=== PATIENT | male | born 1955 | race Caucasian/White ===

== ENCOUNTER 2017-06-26 22:46 | Emergency (ER) | payer BC ==
[~2017-06-26] VITALS: Ht 182.8 cm; Wt 113.4 kg
[2017-06-27] MEDS ORDERED: VICODIN 5-3001 EACH PO (00:50)
== END 2017-06-27 00:54 | disposition home or self-care (01) ==
LOC: ED 22:46
DX: M48.00 Spinal stenosis, site unspecified (principal); M54.30 Sciatica, unspecified side; Z88.0 Allergy status to penicillin

== ENCOUNTER → 2018-10-20 | Day surgery (SDC) | payer BC ==
[~2018-10-20] VITALS: Ht 175.2 cm; Wt 90.7 kg
[~2018-10-20] MED LIST: CRESTOR10 M1 PO; LISINOPRIL-HCT1 EACH PO; VICODIN 5-3001 EACH PO; ZYLOPRIM300 MG PO
--- NOTE | ~2018-10-20 | O ---
[place], [place] OPERATIVE NOTE NAME: EVA ACUÑA [facility] #: [id number] UNIT #: [id number] ROOM: DOCTOR: MAYTE LAN MD BIRTHDATE: [birth year] DOS: 10/20/2018 PREOPERATIVE DIAGNOSIS: Cataract, right eye. POSTOPERATIVE DIAGNOSIS: Cataract, right eye. OPERATION: Extracapsular cataract extraction by phacoemulsification with posterior chamber intraocular lens implantation, right eye. ANESTHESIA: Monitored standby. OPERATIVE FINDINGS AND PROCEDURE: 2% Xylocaine topical anesthetic gel was applied to the eye in the preop area. The patient was taken to the operating room and prepped and draped in the standard fashion for sterile intraocular surgery. A time out procedure was performed verifying correct patient, correct site and corrects lens with Ivan Lan M.D. The operating microscope was swung into position and the lid speculum was inserted. Using a Gaby paracentesis blade, a paracentesis was made through clear cornea. Viscoelastic was used to fill the anterior chamber. Using a metal keratome a 2.4 mm self-sealing clear corneal cataract incision was made temporally at the limbus. Using a pre-bent 25 gauge cystotome needle, a standard continuous curvilinear capsulorrhexis was performed. The anterior capsule was removed with forceps. The lens nucleus was hydrodissected and phacoemulsified in the posterior chamber. Cortical material was removed with the irrigation aspiration hand piece and the posterior capsule was then polished with a curet under irrigation. The posterior chamber and capsular bag were filled with viscoelastic. A posterior chamber intraocular lens manufactured by: [employer], Model [id number], and 18.0 diopters in strength were then inserted into the posterior chamber and within the capsular bag using the lens cartridge and injector system. Viscoelastic was removed using the irrigation aspiration handpiece. The anterior chamber was filled with balanced salt solution through the paracentesis. Both the paracentesis site and cataract incisions were hydrated with BSS and verified to be water-tight and self-sealing. The incision checked to be water-tight using a Weck-Kanchan sponge. The integrity of the cataract wound and ocular tension were checked. Lid speculum and drapes were removed. The patient was transferred from the operating room to the recovery room in satisfactory condition. [place], [place] OPERATIVE NOTE NAME: EVA ACUÑA UNIT #: [id number] ROOM: DOCTOR: MAYTE LAN MD BIRTHDATE: [birth year] MAYTE LAN MD CM:OPRECORD:OPERATIVE NOTE [id number] MAYTE LAN MD 10/20/18 1104 interface
[2018-10-20 09:41] VITALS: BP 134/75
[2018-10-20 10:15] VITALS: BP 116/96
[2018-10-20 10:30] VITALS: BP 116/69
[2018-10-20 10:45] VITALS: BP 100/51
== END | disposition home or self-care (01) ==
LOC: SDC 10-14 11:00
DX: H25.811 Combined forms of age-related cataract, right eye (principal); I10 Essential (primary) hypertension; E78.00 Pure hypercholesterolemia, unspecified; M10.9 Gout, unspecified; Z98.890 Other specified postprocedural states; Z88.0 Allergy status to penicillin; Z79.899 Other long term (current) drug therapy; Z96.643 Presence of artificial hip joint, bilateral

== ENCOUNTER → 2023-01-05 | Outpatient (CLI) | payer MEDICARE | END | disposition home or self-care (01) | LOC: RAD 14:07 | PROVIDERS: ATTEND Chiropractor | DX: M51.36 Other intervertebral disc degeneration, lumbar region (principal); M48.061 Spinal stenosis, lumbar region without neurogenic claudication ==

== ENCOUNTER → 2024-02-29 | Outpatient (CLI) | payer MEDICARE | END | disposition home or self-care (01) | LOC: RAD 15:12 | PROVIDERS: ATTEND Chiropractor | DX: M50.30 Other cervical disc degeneration, unspecified cervical region (principal); M43.12 Spondylolisthesis, cervical region; M48.02 Spinal stenosis, cervical region; M25.78 Osteophyte, vertebrae ==

== ENCOUNTER 2024-08-11 19:26 | Emergency (ER) | payer MEDICARE ==
[~2024-08-11] VITALS: Ht 172.7 cm; Wt 93.0 kg
[2024-08-11 19:42] LABS: BASO # 0.1 10*3/uL (0.0-0.1); BASO % 0.8 % (0.0-1.0); EOS # 0.2 10*3/uL (0.0-0.4); EOS % 3.1 % (1.0-4.0); HEMATOCRIT 41.1 % (42.0-52.0); MEAN CELL VOLUME 93.6 fl (80.0-94.0); MEAN CORPUSCULAR HGB 31.2 pg (27.0-31.0); MEAN CORPUSCULAR HGB CONC 33.3 g/dl (33.0-37.0); MEAN PLATELET VOLUME 8.7 fl (9.6-12.3); MONO # 0.9 10*3/uL (0.1-1.0); MONO % 11.2 % (3.0-9.0); NEUT # 4.5 10*3/uL (2.3-7.9); NEUT % 57.4 % (47.0-73.0); PLATELET COUNT AUTOMATED 247 10*3/uL (130-400); RED BLOOD COUNT 4.39 10*6/uL (4.50-5.90); RED CELL DISTRI WIDTH 12.2 % (0-14.5); WHITE BLOOD COUNT 7.8 10*3/uL (4.8-10.8)
[2024-08-11 20:05] LABS: BUN 18 mg/dl (9-23); CHLORIDE 102 mmol/L (98-107); POTASSIUM 4.2 mmol/L (3.4-5.1)
== END 2024-08-11 20:25 | disposition home or self-care (01) ==
LOC: ED 19:26
PROVIDERS: Nurse Practitioner Family
DX: F12.99 Cannabis use, unspecified with unspecified cannabis-induced disorder (principal); R40.4 Transient alteration of awareness; I10 Essential (primary) hypertension; E78.00 Pure hypercholesterolemia, unspecified; M10.9 Gout, unspecified; Z88.0 Allergy status to penicillin; Z98.890 Other specified postprocedural states

== ENCOUNTER → 2024-08-24 | Outpatient (CLI) | payer MEDICARE | END | disposition home or self-care (01) | LOC: US 09:52 | PROVIDERS: ATTEND Physician Assistant | DX: I65.23 Occlusion and stenosis of bilateral carotid arteries (principal); I10 Essential (primary) hypertension; R55 Syncope and collapse; E78.5 Hyperlipidemia, unspecified ==

== ENCOUNTER → 2024-09-12 | Outpatient (CLI) | payer MEDICARE | LOC: CARD 03:33 | PROVIDERS: ATTEND Internal Medicine Cardiovascular Disease | DX: I08.2 Rheumatic disorders of both aortic and tricuspid valves (principal); E78.00 Pure hypercholesterolemia, unspecified; R55 Syncope and collapse; I11.9 Hypertensive heart disease without heart failure ==

== ENCOUNTER → 2025-06-26 | Outpatient (CLI) | payer MEDICARE ==
[2025-06-27 16:08] LABS: A/G RATIO 1.1 (0.7-1.7); BETA GLOBULIN 1.3 g/dL (0.7-1.3); GLOBULIN, TOTAL 3.5 g/dL (2.2-3.9)
== END | disposition home or self-care (01) ==
LOC: MRI 01:29 → LAB 01:29 → MRI 08:00
PROVIDERS: ATTEND Psychiatry & Neurology Neurology
DX: I67.82 Cerebral ischemia (principal); J32.2 Chronic ethmoidal sinusitis; G31.89 Other specified degenerative diseases of nervous system; R26.9 Unspecified abnormalities of gait and mobility